=== PATIENT | male | born 1995 | race Caucasian/White ===

== ENCOUNTER 2022-08-03 08:21 | Outpatient (CLI) | payer SELFPAY | END 2022-08-03 08:22 | disposition home or self-care (01) | PROVIDERS: PCP Family Medicine; Visit Provider Family Medicine | DX: Z00.00 Encounter for general adult medical examination without abnormal findings (principal); R53.83 Other fatigue; Z11.3 Encounter for screening for infections with a predominantly sexual mode of transmission | CPT/HCPCS: 84443; 86703; 86803; 87341 ==

== ENCOUNTER 2022-09-26 13:37 | Emergency (ER) | payer SELFPAY ==
[2022-09-26 13:56] VITALS: BP 141/79; PULSE 58; RESP 16; TEMP 36.2; O2SAT 99; BMI 25.5
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
[2022-09-26 17:52] VITALS: BP 143/98; PULSE 51; TEMP 36.6
== END 2022-09-26 17:53 | disposition home or self-care (01) ==
PROVIDERS: Emergency Provider Emergency Medicine Emergency Medical Services; PCP Family Medicine
DX: H81.10 Benign paroxysmal vertigo, unspecified ear (principal)
CPT/HCPCS: 99283; 99284